=== PATIENT | male | born 1995 | race African-American/Black ===

== ENCOUNTER 2018-02-24 22:18 | Emergency (ER) | payer OTHER ==
[2018-02-24 22:31] VITALS: BP 119/56; PULSE 80; TEMP 97.8; BMI 33.0
--- NOTE | 2018-02-24 22:46 | PDOC ---
History of Present Illness - General Chief Complaint: Pain Stated Complaint: INJURY - History of Present Illness Initial Comments: 22-year-old male with a past medical history significant for asthma presents for evaluation of right middle finger injury which occurred today while playing fighting. Points to the PIPJ of the right middle finger as the area of his discomfort he describes his pain as achy exacerbated with motion relieved with rest and free of radiation. 02/24/18 22:40 Past History - Past Medical History Allergies/Adverse Reactions: Allergies Allergy/AdvReac Type Severity Reaction Status Date / Time No Known Allergies Allergy Verified 02/24/18 22:25 Home Medications: Ambulatory Orders NK [No Known Home Medication] 02/24/18 Asthma: Yes COPD: No - Suicide/Smoking/Psychosocial Hx Smoking History: Never smoked Have you smoked in the past 12 months: No Hx Alcohol Use: No Drug/Substance Use Hx: Yes (Hermilo) Review of Systems - Review of Systems Musculoskeletal: Yes: Joint Pain All Other Systems: Reviewed and Negative *Physical Exam - Vital Signs Last Vital Signs Temp Pulse Resp BP Pulse Ox 97.8 F 80 20 119/56 98 02/24/18 22:23 02/24/18 22:23 02/24/18 22:23 02/24/18 22:23 02/24/18 22:23 - Physical Exam Comments: Right middle finger skin color and temperature are normal there is decreased range of motion without malrotation. There is tenderness about the PIPJ. He has no evidence of instability. No gross sensorimotor deficits she's neurovascular intact. FDS and FDP work independently. 02/24/18 22:42 ED Treatment Course - RADIOLOGY Radiology Studies Ordered: Category Date Time Status HAND- RIGHT [RAD] Stat Radiology 02/24/18 22:31 Taken Medical Decision Making - Medical Decision Making No acute fracture on x-ray 02/24/18 22:43 *DC/Admit/Observation/Transfer Diagnosis at time of Disposition: Sprain, finger - Discharge Dispostion Disposition: HOME Condition at time of disposition: Stable Decision to Admit order: No - Referrals Referrals: Shree Ross MD [Staff Physician] - - Patient Instructions Printed Discharge Instructions: Finger Sprain, DI for Finger Sprain Additional Instructions: Keep the fingers erica taped together with the joint free so you're able to bend it. Follow-up with hand surgery in the next 1-2 days for further evaluation and treatment options. Return to the emergency room should her symptoms worsen or go unresolved. He may take Motrin and Tylenol for pain. - Post Discharge Activity
== END 2018-02-24 22:53 | disposition home or self-care (01) ==
LOC: JERFT 22:18
DX: S63.636A Sprain of interphalangeal joint of right little finger, initial encounter (principal); Y93.83 Activity, rough housing and horseplay; Y93.89 Activity, other specified; Y92.89 Other specified places as the place of occurrence of the external cause; Y99.8 Other external cause status
CPT/HCPCS: 73130-TC-RT-FY; 99281-25

== ENCOUNTER 2019-02-07 07:04 | Emergency (ER) | payer OTHER ==
[2019-02-07 07:19] VITALS: BP 113/82; PULSE 68; TEMP 98.5; BMI 34.1
[2019-02-07] MEDS ORDERED: DIPHTH,PERTUSS(ACELL),TET 0.5 ML DISP.SYRIN IM ONE ×2 (07:40→07:51)
--- NOTE | 2019-02-07 07:51 | PDOC ---
History of Present Illness - General Chief Complaint: Injury Stated Complaint: FINGER INJURY Time Seen by Provider: 02/07/19 07:22 History Source: Patient Exam Limitations: No Limitations Past History - Travel Traveled outside of the country in the last 30 days: No Close contact w/someone who was outside of country & ill: No - Past Medical History Allergies/Adverse Reactions: Allergies Allergy/AdvReac Type Severity Reaction Status Date / Time No Known Allergies Allergy Verified 02/24/18 22:25 Home Medications: Ambulatory Orders Albuterol Sulfate Inhaler - [Ventolin Hfa Inhaler -] 1 - 2 inh PO Q4H PRN Asthma: Yes COPD: No - Suicide/Smoking/Psychosocial Hx Smoking History: Never smoked Have you smoked in the past 12 months: No Information on smoking cessation initiated: No Hx Alcohol Use: No Drug/Substance Use Hx: Yes Review of Systems - Review of Systems Able to Perform ROS?: Yes Comments:: 02/07/19 11:06 CONSTITUTIONAL: Absent: fever, chills, diaphoresis, generalized weakness, malaise, loss of appetite MUSCULOSKELETAL: Absent: myalgia, arthralgia, joint swelling SKIN: Present: Cut to R 5th finger Absent: rash, itching, pallor NEUROLOGIC: Absent: headache, focal weakness or paresthesias, dizziness, unsteady gait, seizure, mental status changes, bladder or bowel incontinence Is the patient limited [place] proficient: No *Physical Exam - Vital Signs Last Vital Signs Temp Pulse Resp BP Pulse Ox 98.5 F 68 18 113/82 98 02/07/19 07:12 02/07/19 07:12 02/07/19 07:12 02/07/19 07:12 02/07/19 07:12 - Physical Exam Comments: 02/07/19 11:07 GENERAL: The patient is awake, alert, and fully oriented, in no acute distress. HEAD: Normal with no signs of trauma. EYES: Pupils equal, round and reactive to light, extraocular movements intact, sclera anicteric, conjunctiva clear. EXTREMITIES: Normal range of motion, no edema. NEUROLOGICAL: Normal speech, normal gait. PSYCH: Normal mood, normal affect. SKIN: 1 cm laceration to the palmar 5th finger between the PIP and DIP. Warm, Dry, normal turgor, no rashes or lesions noted. Medical Decision Making - Medical Decision Making 02/07/19 11:11 The patient is a 23 -year-old male with no past medical history presents for evaluation of a laceration to his right hand. He states that he was cut yesterday morning with a scissor. He states that the bleeding had stopped however when he took off the bandage this morning he ripped off the scab and started bleeding again. He has not reported of his last tetanus shot. Denies fevers, chills, numbness and tingling to the Faby weakness in the cavity. Patient is right-hand dominant. A/P: Laceration On exam a 1 cm laceration present between the DIP and PIP of the right hand on the palmar side. No active bleeding at this time. Tetanus shot updated. Given wound is open for [address] Wound was cleaned under high pressure with normal saline. Steri-Strip placed over the wound to help approximate. X-ray of the right hand obtained. No fractures identified. Discharge home with hand follow-up I discussed the physical exam findings, ancillary test results and final diagnoses with the patient. I answered all of the patient's questions. The patient was satisfied with the care received and felt comfortable with the discharge plan and treatment plan. The Patient agrees to follow up with the primary care physician/specialist within 24-72 hours. Return precautions were given. *DC/Admit/Observation/Transfer Diagnosis at time of Disposition: Laceration - Discharge Dispostion Disposition: HOME Condition at time of disposition: Stable Decision to Admit order: No - Referrals Referrals: Milton Myrick MD [Staff Physician] - - Patient Instructions Printed Discharge Instructions: DI for Laceration Repair Steri-Strips Additional Instructions: You had your cut fixed today with steristrips; the steristrips will fall off on their own. Your tetanus shot was updated today. Avoid soaking the R hand. Keep it dry when showering. Please keep the area clean and pat dry. You may take Tylenol or Motrin as needed for pain. Follow the trailer park manager's instructions. Return to the emergency department sooner if you have area of redness around the site, purulent drainage, fevers, or have any changes in your symptoms. - Post Discharge Activity Forms/Work/School Notes: Back to Work
== END 2019-02-07 08:49 | disposition home or self-care (01) ==
LOC: JER 07:04
PROC: 3E0234Z Introduction of Serum, Toxoid and Vaccine into Muscle, Percutaneous Approach (ICD-10-PCS; principal; 2019-02-07)
DX: S61.216A Laceration without foreign body of right little finger without damage to nail, initial encounter (principal); W27.2XXA Contact with scissors, initial encounter; Y93.89 Activity, other specified; Y92.89 Other specified places as the place of occurrence of the external cause; Y99.8 Other external cause status
CPT/HCPCS: 73130-TC-RT-FY; 90471; 90715; 99281-25